=== PATIENT | male | born 1975 | race Caucasian/White ===

== ENCOUNTER 2018-12-28 16:42 | Outpatient (CLI) | payer BC ==
[2018-12-28 17:36] LABS: #Basophils 0.1 thou/uL (0.0-0.2); #Eosinphils 0.3 thou/uL (0.0-0.7); #Lymphocytes 2.2 thou/uL (1.20-3.40); #Monocytes 0.8 thou/uL (0.11-0.59); #Neutrophils 5.7 thou/uL (1.40-6.50); %Basophils 1.1 % (0.0-1.0); %Eosinophils 2.9 % (0.0-10.0); %Lymphocytes 24.4 % (21.0-51.0); %Neutrophils 62.6 % (42.0-75.0); Hemoglobin 14.8 g/dL (14.0-18.0); Mean Corpuscular HGB CONC 33.5 g/dL (32.0-36.0); Mean Corpuscular Hemoglobin 30.1 pg (27.0-31.0); Mean Corpuscular Volume 89.7 fL (78.0-98.0); Mean Platelet Volume 9.5 fL (7.4-10.4); Platelet Count 225 thou/uL (130-400); Red Blood Cell (RBC) Count 4.93 mill/uL (4.70-6.10); White Blood Cell (WBC) Count 9.1 thou/uL (4.8-10.8)
[2018-12-28 17:58] LABS: Anion Gap 12 mmol/L (10-20); BUN (Urea Nitrogen) 14 mg/dL (8.9-20.6); Calc. Creatinine Clearance 0 mL/min (70-130); Carbon Dioxide 26 mmol/L (22-29); Chloride 107 mmol/L (98-107); Estimated GFR-MDRD 70; Glucose 92 mg/dL (70-105); Potassium 3.9 mmol/L (3.5-5.1); Sodium 141 mmol/L (136-145)
== END 2018-12-28 16:43 | disposition home or self-care (01) ==
LOC: LABBT 16:42
PROVIDERS: ATTEND Orthopaedic Surgery
DX: Z01.818 Encounter for other preprocedural examination (principal); S83.241A Other tear of medial meniscus, current injury, right knee, initial encounter
CPT/HCPCS: 80048; 85025; 93005; 93010

== ENCOUNTER 2020-08-21 06:50 | Outpatient (CLI) | payer BC ==
[2020-08-21 14:47] LABS: #Basophils 0.1 10x3/uL (0.0-0.2); #Eosinphils 0.4 10x3/uL (0.0-0.5); #Monocytes 0.9 10x3/uL (0.0-1.1); #Neutrophils 7.2 10x3/uL (1.5-8.4); %Basophils 0.9 % (0.0-2.0); %Eosinophils 3.7 % (0.0-6.0); %Monocytes 7.9 % (0.0-10.0); %Neutrophils 63.1 % (40.0-75.0); Anion Gap 16 mmol/L (10-20); BUN (Urea Nitrogen) 14 mg/dL (8.9-20.6); Calc. Creatinine Clearance 0 mL/min (70-130); Calcium 9.7 mg/dL (7.8-10.44); Carbon Dioxide 24 mmol/L (22-29); Chloride 105 mmol/L (98-107); Estimated GFR-MDRD 66; Glucose 85 mg/dL (70-105); Hemoglobin 13.5 g/dL (14.0-18.0); Mean Corpuscular HGB CONC 32.7 G/DL (32.0-36.0); Mean Corpuscular Hemoglobin 29.4 PG (27.0-33.0); Mean Platelet Volume 12.2 fl (7.4-10.4); Platelet Count 255 10x3/uL (130-400); Potassium 4.5 mmol/L (3.5-5.1); RBC Distribution Width 13.6 % (11.5-14.5); Red Blood Cell (RBC) Count 4.59 10x6/uL (4.40-5.80); Sodium 140 mmol/L (136-145); White Blood Cell (WBC) Count 11.4 10x3/uL (4.5-11.0)
[2020-08-21 14:59] LABS: Prothrombin Time 10.3 sec (9.5-12.1)
[2020-08-22 09:30] LABS: SARS-CoV-2 MS2 Positive; SARS-CoV-2 N Gene Negative; SARS-CoV-2 S Gene Negative; SARS-CoV-2 by NAA Not Detected (NotDetected); SARS-CoV-2 orf1ab Negative
== END 2020-08-21 06:51 | disposition home or self-care (01) ==
LOC: LABBT 06:50
PROVIDERS: ATTEND Orthopaedic Surgery
DX: Z01.818 Encounter for other preprocedural examination (principal); M17.31 Unilateral post-traumatic osteoarthritis, right knee; Z20.828 Contact with and (suspected) exposure to other viral communicable diseases
CPT/HCPCS: 80048; 85025; 85610; 87081; 87635; 93005; 93010; U0003

== ENCOUNTER 2020-08-21 13:15 | Inpatient (IN) | payer BC ==
[2020-08-25 12:00] VITALS: BMI 38.7
[2020-08-26] MEDS ORDERED: Fentanyl 100 MCG/2 ML VIAL ONE ×4 (06:04→09:20)
[2020-08-26] MEDS ORDERED: Tranexamic Acid 1,000 MG/10 ML VIAL ONE (06:24)
[2020-08-26] MEDS ORDERED: HYDROmorphone 2 MG/ML VIAL SLOW IVP PRN (06:26)
[2020-08-26] MEDS ORDERED: Meperidine HCl/PF 25 MG/ML VIAL SLOW IVP PRN (06:26)
[2020-08-26] MEDS ORDERED: Promethazine HCl 25 MG/ML VIAL SLOW IVP PRN (06:26)
[2020-08-26] MEDS ORDERED: Promethazine HCl 25 MG/ML VIAL IM PRN ×3 (06:26→07:45)
[2020-08-26] MEDS ORDERED: Morphine Sulfate 2 MG/ML SYRINGE SLOW IVP PRN (06:26)
[2020-08-26] MEDS ORDERED: Ondansetron HCl/PF 4 MG/2 ML Vial IVP PRN (06:26)
[2020-08-26] MEDS ORDERED: Sodium Chloride 0.9% 100 ML ONE (06:28)
[2020-08-26] MEDS ORDERED: Lidocaine 1% (PF) 30 ML VIAL ONE (06:30)
[2020-08-26] MEDS ORDERED: Midazolam HCl 2 mg/2 ml Vial ONE (06:30)
[2020-08-26] MEDS ORDERED: Fentanyl 100 MCG/2 ML VIAL SLOW IVP PRN ×3 (06:57→07:37)
[2020-08-26] MEDS ORDERED: diphenhydrAMINE 25 MG CAP PO PRN (06:57)
[2020-08-26] MEDS ORDERED: Acetaminophen 325 MG TAB PO PRN (06:57)
[2020-08-26] MEDS ORDERED: Ondansetron PF 4 MG/2 ML Vial IVP PRN ×2 (06:57→07:45)
[2020-08-26] MEDS ORDERED: HYDROcodone/Acetaminophen 10/325 mg Tablet PO PRN ×2 (06:57)
[2020-08-26] MEDS ORDERED: Zolpidem Tartrate 5 MG TAB PO PRN ×2 (06:57→07:45)
[2020-08-26] MEDS ORDERED: Ropivacaine HCl/PF 250 ML in Premix Bag 1 BAG NERVE BLCK SCH (07:45)
[2020-08-26] MEDS ORDERED: traMADol HCl 50 MG TAB PO PRN ×2 (07:45)
--- NOTE | 2020-08-26 09:19 | RAD ---
EXAM: 2 views of the right knee HISTORY: Knee arthroplasty COMPARISON: None FINDINGS: No knee effusion is seen. The patient is status post knee arthroplasty without perihardware lucency or fracture. Air in the soft tissues is from recent surgery. IMPRESSION: Status post knee arthroplasty without evidence of complication.
--- NOTE | 2020-08-26 09:24 | OP ---
DATE OF PROCEDURE: 08/26/2020 TITLE OF PROCEDURE: Right total knee arthroplasty using Mar[employer]ruz Triathlon 6 femur, 6 tibia, 11 mm CS X3 polyethylene, and A35 patella. PROMOTIONS INTERN: Nelly Boyle PA-C The parking assistant/co-surgeon was present through the entire procedure and was responsible for providing exposure, tissue retraction and any necessary limb or tissue manipulation required to obtain necessary reduction or hardware placement. The parking assistant/co-surgeon also provided bleeding control, tissue closure, and suturing in conjunction with the primary surgeon. BLOOD LOSS: Minimal. SPECIMENS: None. DRAINS: None. COMPLICATIONS: None. PROCEDURE IN DETAIL: After informed consent was obtained in the preoperative holding area, the patient was taken to the operative suite where general anesthesia was induced. Once adequate level of general anesthesia was obtained, the patient was positioned and a well-padded tourniquet was placed around the right proximal thigh. The right lower extremity was then prepped and draped in the usual sterile fashion. Prior to exsanguination, a time-out was called and all members of the surgical team agreed upon site, surgeon, and patient. The extremity was then exsanguinated and the tourniquet was raised. A midline longitudinal incision was then made directly over the patella extending 2 fingerbreadths above the superior pole of the patella and 2 fingerbreadths inferior to the inferior patellar pole of the patella. Deeper subcutaneous layers were dissected sharply and local bleeding was controlled with Bovie electrocautery. A quad tendon longitudinal split was then made sharply and a median parapatellar arthrotomy was carried out both sharp and with Bovie electrocautery, carried down to 1 fingerbreadth medial to the tibial tubercle. The knee was then placed into flexion and the patella was everted nicely, and a copious fat pad ectomy was performed allowing for greater exposure of the tibia. The computer-assisted distal femoral fiducial was then placed and pinned firmly, and the distal femoral cutting guide was pinned firmly into place. The oscillating saw was then used to remove the appropriate amount of bone. The 4-in-1 cutting block was then placed on the distal femur and the oscillating saw was used to remove the appropriate amount of bone off the anterior, posterior, and chamfer cuts. After completion of bone cuts, the anterior cruciate ligament was resected sharply and the posterior cruciate ligament retractor was placed and the tibia was subluxed for better exposure. Partial meniscectomies were carried out, and the tibial computer-assisted fiducial was pinned, and the cutting guide was placed. Oscillating saw was then used to remove the bone, with Hohmann retractors used to take care and protect the collateral ligaments. After the tibial resection was performed, a laminar landscape crew leader was placed in between the freshened bone cuts. The knee placed at 90 degrees and further bilateral meniscectomies were carried out, and the curved osteotome and curettage were used to remove any excess bone spurs in the posterior compartment. The trial femoral component, tibial baseplate were placed with the appropriate polyethylene trial insert with an appropriate polyethylene spacer and patellar button. The knee was taken through full range of motion with flexion and extension from 0 to 90 degrees and patellar broach squarely in the trochlea without any squinting or subluxation noted. The knee was also stable to varus and valgus stressing at 0, 15, 45, and 90 degrees of flexion. The drawer was negative. All trial components were then removed and the keel punch was used to provide the appropriate defect in the tibia with a mallet. The freshened bone cuts were copiously irrigated with pulsatile lavage of about 1.5 L to remove all excess debris. The freshened bone cuts were then dried with suction and lap sponge. The knee was placed in flexion and retractors were placed to provide access to all bone cuts. Tobramycin-impregnated methyl methacrylate cement was then placed on the freshened bone cuts and implants which were malleted firmly into place. Curettage and [place] elevators were used to remove any excess bone cement. The knee was placed into full extension and the patellar button was placed under compression, and the cement was allowed to cure. Once completed, the components were again taken through full range of motion and copious irrigation of the knee was carried out with another liter of normal saline. All components were inspected fully with full range of motion and varus and valgus stressing. There was no laxity noted and full extension was observed clinically. Primary closure was accomplished with #2 interrupted Vicryl stitch of the arthrotomy defect. This was oversewn with a #2 running Quill barbed stitch. The gravitational platelet system was then injected into the arthrotomy prior to closure. The subcutaneous layer was then closed with a running 0 barbed Monocryl stitch and skin closure accomplished with a running subcuticular 3-0 Monocryl barbed Quill stitch and augmented with cement on the skin. Tourniquet was lowered. Good spontaneous return of distal pulses was noted clinically and a sterile dressing was applied to the incision. The procedure was terminated without any complications. The patient was awakened in the operative suite, and the patient was taken to the recovery room in stable condition. Job ID: [id number]
[2020-08-26] MEDS ORDERED: Bupivacaine HCl 0.5%/Epinephrine 1:200,000/PF 30 ml Vial ONE (09:53)
[2020-08-26] MEDS ORDERED: Dexamethasone 20 MG/5 ML VIAL ONE (09:53)
[2020-08-26] MEDS ORDERED: ePHEDrine 50 MG/ML VIAL ONE (09:53)
[2020-08-26] MEDS ORDERED: Lidocaine 1% PF 5 ML VIAL ONE (09:53)
[2020-08-26] MEDS ORDERED: Ondansetron PF 4 MG/2 ML Vial ONE (09:53)
[2020-08-26] MEDS ORDERED: Ropivacaine 0.2% HCl/PF (40 MG/20 ML VIAL) ONE (09:53)
[2020-08-26] MEDS ORDERED: PROPOFOL 200 MG/20 ML VIAL ONE (09:53)
[2020-08-26] MEDS: CEFAZOLIN 2 GM in Premix Bag 1 BAG IVPB SCH ×2 (10:48→15:29)
[2020-08-26] MEDS: Losartan 25 MG TAB PO SCH (10:49)
[2020-08-26] MEDS: Aspirin 81 mg Enteric Coated Tablet PO SCH ×2 (10:49→20:15)
[2020-08-26] MEDS: Sodium Chloride 0.9% 1,000 ML IV SCH ×2 (10:49→16:02)
[2020-08-26] MEDS: Ketorolac Tromethamine 30 MG/ML VIAL IVP SCH ×3 (12:18→23:14)
[2020-08-26] MEDS: HYDROcodone/Acetaminophen 10/325 mg Tablet PO PRN (12:19)
[2020-08-26] MEDS ORDERED: Ketorolac Tromethamine 30 MG/ML VIAL IVP SCH (14:00)
[2020-08-26] MEDS ORDERED: ZOLPIDEM TARTRATE 12.5 MG PO SCH (21:00)
[2020-08-26] MEDS ORDERED: CEFAZOLIN 2 GM in Premix Bag 1 BAG IVPB SCH (23:00)
[2020-08-27] MEDS: HYDROcodone/Acetaminophen 10/325 mg Tablet PO PRN ×3 (04:00→12:04)
[2020-08-27] MEDS: Sodium Chloride 0.9% 1,000 ML IV SCH ×2 (04:19→12:31)
[2020-08-27] MEDS: Ketorolac Tromethamine 30 MG/ML VIAL IVP SCH ×2 (05:23→12:03)
[2020-08-27 06:12] LABS: Mean Corpuscular HGB CONC 33.1 g/dL (32.0-36.0); Mean Corpuscular Hemoglobin 30.3 pg (27.0-31.0); Mean Corpuscular Volume 91.6 fL (78.0-98.0); Platelet Count 218 thou/uL (130-400); RBC Distribution Width 12.8 % (11.5-14.5); Red Blood Cell (RBC) Count 3.94 mill/uL (4.70-6.10); White Blood Cell (WBC) Count 16.5 thou/uL (4.8-10.8)
[2020-08-27] MEDS: Aspirin 81 mg Enteric Coated Tablet PO SCH (07:50)
[2020-08-27] MEDS: Losartan 25 MG TAB PO SCH (07:50)
[2020-08-27] MEDS ORDERED: Ferrous Gluconate 324 MG TAB PO SCH (08:00)
[2020-08-27] MEDS ORDERED: Multivitamin W/ Minerals 1 TAB PO SCH (09:00)
[2020-08-27] MEDS ORDERED: Senokot S 8.6-50 MG TAB PO SCH (09:00)
[2020-08-27] MEDS ORDERED: Ropivacaine 0.2% 550 ML 550 ML NERVE BLCK SCH (09:45)
[2020-08-27 11:21] VITALS: BP 144/79; TEMP 97.9
[2020-08-27] MEDS ORDERED: FLU VACC QS2020-21(6MOS UP)/PF 60 MCG/0.5 ML SYRINGE IM ONE (13:45)
== END 2020-08-27 15:05 | disposition home or self-care (01) | DRG 470 ==
LOC: SURG A 08-26 05:30
PROVIDERS: ADMIT Orthopaedic Surgery; ATTEND Orthopaedic Surgery
PROC: 0SRC0J9 Replacement of Right Knee Joint with Synthetic Substitute, Cemented, Open Approach (ICD-10-PCS; principal; 2020-08-26)
DX: M17.31 Unilateral post-traumatic osteoarthritis, right knee (principal); Z20.828 Contact with and (suspected) exposure to other viral communicable diseases; E78.5 Hyperlipidemia, unspecified; F32.9 Major depressive disorder, single episode, unspecified; X58.XXXS Exposure to other specified factors, sequela; S83.20 Tear of unspecified meniscus, current injury; Z79.899 Other long term (current) drug therapy
CPT/HCPCS: 36415; 85027; 90471; 90662; A4306; C1713; C1776; G0008; J0690; J1100; J1885; J2001; J2250; J2405; J2704; J2795; J3010; J3490; Q0163